=== PATIENT | female | born 1960 | race Caucasian/White ===

== ENCOUNTER 2019-04-24 23:58 | Inpatient (IN) | payer OTHER ==
[2019-04-25] MEDS ORDERED: ONDANSETRON 4 MG INJ IV ×2 (01:00→03:00)
[2019-04-25] MEDS ORDERED: ACETAMINOPHEN 325 MG TAB PO ×2 (01:00→03:00)
[2019-04-25] MEDS ORDERED: hydrALAzine 20 MG INJ IV (03:00)
[2019-04-25] MEDS ORDERED: GLUCOSE GEL 15 GRAM TUBE PO ×2 (03:30)
[2019-04-25] MEDS ORDERED: DEXTROSE 50% 50 ML SYRINGE IV ×2 (03:30)
[2019-04-25] MEDS ORDERED: GLUCAGON 1 MG INJ IM (03:30)
[2019-04-25] MEDS ORDERED: GLUCOSE GEL 15 GRAM TUBE BUCCAL (03:30)
[2019-04-25 06:20] LABS: ADD MAN DIFF? NO
[2019-04-25 06:25] LABS: BASOPHIL # 0.1 10^3/ul (0.0-0.1); BASOPHILS % 0.8 % (0.0-2.0); EOSINOPHILS # 0.2 10^3/ul (0.0-0.5); EOSINOPHILS % 2.5 % (0.0-7.0); HEMATOCRIT 42.8 % (37.0-47.0); HEMOGLOBIN 13.9 g/dl (12.0-16.0); LYMPHOCYTES # 3.1 10^3/ul (0.8-2.9); LYMPHOCYTES % 40.3 % (15.0-51.0); MEAN CORPUSCULAR HEMOGLOBIN 28.6 pg (29.0-33.0); MEAN CORPUSCULAR HGB CONC 32.5 g/dl (32.0-37.0); MEAN CORPUSCULAR VOLUME 88.1 fl (82.0-101.0); MEAN PLATELET VOLUME 10.8 fl (7.4-10.4); MONOCYTE # 0.5 10^3/ul (0.3-0.9); MONOCYTES % 5.9 % (0.0-11.0); NEUTROPHIL # 3.9 10^3/ul (1.6-7.5); NEUTROPHILS % 50.4 % (39.0-77.0); PLATELET COUNT 343 10^3/UL (140-415); RED BLOOD COUNT 4.86 10^6/ul (4.20-5.40); RED CELL DISTRIBUTION WIDTH 14.1 % (11.5-14.5)
[2019-04-25 06:25] LABS: WHITE BLOOD COUNT 7.7 10^3/ul (4.8-10.8)
[2019-04-25 06:45] LABS: HEMOGLOBIN A1C 8.4 % (0-5.9)
[2019-04-25 06:49] LABS: ANION GAP 7 (5-13); BLOOD UREA NITROGEN 21 mg/dl (7-20); CALCIUM 8.9 mg/dl (8.4-10.2); CARBON DIOXIDE 28 mmol/L (21-31); CHLORIDE 107 mmol/L (97-110); CREATININE 0.95 mg/dl (0.44-1.00); Estimated GFR > 60 mL/min (>60); GLUCOSE 231 mg/dl (70-220); POTASSIUM 4.2 mmol/L (3.5-5.1); SODIUM 142 mmol/L (135-144)
[2019-04-25] MEDS ORDERED: LORAZEPAM 2 MG INJ (13:08)
[2019-04-25] MEDS: LORAZEPAM 2 MG INJ IV (14:30)
[2019-04-25 16:21] LABS: ETHANOL < 10.0 mg/dl (0-0)
[2019-04-25 16:30] LABS: FREE T4 (FREE THYROXINE) 0.71 ng/dl (0.64-1.79)
[2019-04-25] MEDS: LOSARTAN 25 MG TAB PO (17:08)
[2019-04-25] MEDS: INSULIN GLARGINE [LANTus] (100 UNITS/ML) SYG SC (17:28)
[2019-04-25] MEDS: INSULIN ASPART [NOVOLOG] 3 ML PEN SC ×4 (17:28→21:44)
[2019-04-25] MEDS ORDERED: MECLIZINE 25 MG TAB PO (17:30)
[2019-04-25] MEDS: HEPARIN 5,000 UNIT/1 ML VIAL SC ×2 (17:52→21:44)
[2019-04-25] MEDS: ATORVASTATIN 80 MG TAB PO (21:28)
[2019-04-25] MEDS: GABAPENTIN 300 MG CAP PO (21:28)
[2019-04-26] MEDS ORDERED: hydrALAzine 20 MG INJ IV
[2019-04-26] MEDS: ACCU-CHEK XX (02:00)
[2019-04-26] MEDS ORDERED: ACCU-CHEK XX (02:00)
[2019-04-26] MEDS: INSULIN ASPART [NOVOLOG] 3 ML PEN SC ×7 (03:36→21:26)
[2019-04-26 06:05] LABS: CHOL/HDL RATIO 4.8 RATIO; CHOLESTEROL 173 mg/dl (100-200); HDL CHOLESTEROL 36 mg/dl (35-98); LDL CHOLESTEROL,CALCULATED 83 mg/dl; MAGNESIUM 1.7 mg/dl (1.7-2.5); TRIGLYCERIDES 272 mg/dl (0-149)
[2019-04-26 06:05] LABS: PHOSPHORUS 2.7 mg/dl (2.5-4.9)
[2019-04-26] MEDS: GABAPENTIN 300 MG CAP PO ×2 (08:19→20:43)
[2019-04-26] MEDS: LOSARTAN 25 MG TAB PO (08:20)
[2019-04-26] MEDS: HEPARIN 5,000 UNIT/1 ML VIAL SC (08:29)
[2019-04-26] MEDS: INSULIN GLARGINE [LANTus] (100 UNITS/ML) SYG SC (11:22)
[2019-04-26] MEDS: MECLIZINE 12.5 MG TAB PO ×2 (12:50→20:42)
[2019-04-26 16:10] LABS: RAPID PLASMA REAGIN NONREACTIVE (NR)
[2019-04-26] MEDS: ATORVASTATIN 40 MG TAB PO (20:42)
[2019-04-26] MEDS ORDERED: ATORVASTATIN 10 MG TAB PO (21:00)
[2019-04-26] MEDS ORDERED: ATORVASTATIN 20 MG TAB PO (21:00)
[2019-04-27 00:20] LABS: ADD UMIC YES; UR ASCORBIC ACID NEGATIVE (NEGATIVE); UR BILIRUBIN (Dip) NEGATIVE (NEGATIVE); UR BLOOD (Dip) 1+ mg/dL (NEGATIVE); UR CLARITY CLEAR (CLEAR); UR COLOR YELLOW (YELLOW); UR GLUCOSE (Dip) 1+ mg/dL (NEGATIVE); UR KETONES (Dip) NEGATIVE (NEGATIVE); UR LEUKOCYTE ESTERASE (Dip) NEGATIVE Leu/ul (NEGATIVE); UR NITRITE (Dip) NEGATIVE (NEGATIVE); UR RBC 2 /HPF (0-5); UR SPECIFIC GRAVITY (Dip) 1.015 (1.003-1.030); UR TOTAL PROTEIN (Dip) 1+ mg/dl (NEGATIVE); UR UROBILINOGEN (Dip) NEGATIVE (NEGATIVE); UR WBC 0 /HPF (0-5)
[2019-04-27 00:36] LABS: AMPHETAMINE/METHAMPHETAMINE Negative (NEGATIVE); BARBITURATES Negative (NEGATIVE); BENZODIAZEPINES Negative (NEGATIVE); CANNABINOIDS Negative (NEGATIVE); COCAINE Negative (NEGATIVE); OPIATES Negative (NEGATIVE)
[2019-04-27] MEDS: ACCU-CHEK XX ×2 (02:00→04:41)
[2019-04-27] MEDS: INSULIN ASPART [NOVOLOG] 3 ML PEN SC ×3 (02:23→07:42)
[2019-04-27] MEDS ORDERED: INSULIN GLARGINE [LANTus] (100 UNITS/ML) SYG SC ×2 (08:00)
[2019-04-27] MEDS: LOSARTAN 25 MG TAB PO (08:48)
[2019-04-27] MEDS: GABAPENTIN 300 MG CAP PO (08:48)
[2019-04-27] MEDS: MECLIZINE 12.5 MG TAB PO (08:48)
[2019-04-29 07:06] LABS: VITAMIN B1 (THIAMINE) 156 nmol/L (78-185)
== END 2019-04-27 09:34 | disposition home or self-care (01) | DRG 149 ==
LOC: E/R 23:58 → 6WM 04-25 00:40
PROVIDERS: Hospitalist
DX: R42 Dizziness and giddiness (principal); Z68.41 Body mass index [BMI] 40.0-44.9, adult; F07.81 Postconcussional syndrome; I10 Essential (primary) hypertension; E11.40 Type 2 diabetes mellitus with diabetic neuropathy, unspecified; E78.5 Hyperlipidemia, unspecified; E66.01 Morbid (severe) obesity due to excess calories
CPT/HCPCS: 70551; 80048; 80061; 80307; 81001; 82607; 82962; 83036; 83735; 84100; 84425; 84439; 84443; 85025; 86592; 97162; 99285-25

== ENCOUNTER 2019-08-06 06:10 | Day surgery (SDC) | payer OTHER ==
[2019-08-06] MEDS: MOXIFLOXACIN 0.5% 3 ML OPH OPER (07:35)
[2019-08-06] MEDS: TROPICAMIDE 1% 15 ML OPH OPER (07:35)
[2019-08-06] MEDS: CYCLOPENTOLATE/PHENYLEPH 2 ML OPH OPER (07:35)
[2019-08-06] MEDS: DICLOFENAC 0.1% 2.5 ML OPH OPER (07:35)
[2019-08-06] MEDS: SOD CHLORIDE 0.9% 1,000 ML IV (07:35)
[2019-08-06] MEDS ORDERED: ACETAMINOPHEN 500 MG TAB PO ×2 (08:30→09:00)
[2019-08-06] MEDS: CEFAZOLIN 1 GM INJ INJ (08:57)
[2019-08-06] MEDS: CARBACHOL 0.01% 1.5 ML OPH INJ INJ (08:57)
[2019-08-06] MEDS: DEXAMETHASONE 4 MG/ML 1 ML INJ INJ (08:57)
[2019-08-06] MEDS ORDERED: ONDANSETRON 4 MG INJ IV (09:00)
[2019-08-06] MEDS ORDERED: ACETAMINOPHEN 325 MG TAB PO (09:00)
[2019-08-06] MEDS ORDERED: hydrALAzine 20 MG INJ IV (09:00)
[2019-08-06] MEDS ORDERED: LABETALOL HCL 20MG INJ IV (09:00)
[2019-08-06] MEDS ORDERED: ALBUTEROL 0.083% (NEB) 2.5 MG/3 ML AMP HHN (09:00)
[2019-08-06] MEDS ORDERED: OXYCODONE/ACETAMINOPHEN (5/325) TAB PO (09:00)
[2019-08-06] MEDS ORDERED: DIPHENHYDRAMINE 50 MG INJ IV (09:00)
[2019-08-06] MEDS: FENTAnyl 50 MCG/ML VIAL IV (10:01)
== END 2019-08-06 11:02 | disposition home or self-care (01) ==
LOC: SUR 06:10 → SDS 06:10 → SUR 11:02
DX: H25.11 Age-related nuclear cataract, right eye (principal); I10 Essential (primary) hypertension; E11.9 Type 2 diabetes mellitus without complications; Z79.4 Long term (current) use of insulin
CPT/HCPCS: 66984; 82962